=== PATIENT | female | born 1990 | race Caucasian/White ===

== ENCOUNTER 2016-08-27 05:47 | Day surgery (SDC) | payer OTHER ==
[2016-08-27] MEDS ORDERED: LR 1,000 ML IV ONE (06:11)
[2016-08-27] MEDS ORDERED: LIDOCAINE 1% 5 ML SDV ID PRN (06:11)
[2016-08-27] MEDS ORDERED: LIDOCAINE 1% 5 ML SDV ONE (06:14)
[2016-08-27] MEDS ORDERED: ACETAMINOPHEN 500 MG TAB PO ONE (07:00)
[2016-08-27] MEDS ORDERED: ceFAZolin 2 GM/DEXTROSE 100 ML IV ONE (07:00)
[2016-08-27] MEDS ORDERED: PREGABALIN 150 MG CAP PO ONE (07:00)
[2016-08-27] MEDS ORDERED: MIDAZOLAM 2 MG/2 ML VIAL ONE (07:01)
[2016-08-27] MEDS ORDERED: SCOPOLAMINE HYDROBROMIDE 1.5 MG PATCH TD ONE (07:01)
[2016-08-27] MEDS ORDERED: BUPIVACAINE/EPI 0.25% 30 ML SDV ONE (07:16)
[2016-08-27] MEDS ORDERED: PROPOFOL/EMULSION 500 MG/50 ML BOTTLE IV ONE ×2 (07:17→07:33)
[2016-08-27] MEDS ORDERED: fentaNYL 100 MCG/2 ML INJ ONE ×2 (07:17→10:17)
[2016-08-27] MEDS ORDERED: KETOROLAC 30 MG/1 ML SDV ONE (07:17)
[2016-08-27] MEDS ORDERED: ONDANSETRON 4 MG/2 ML VIAL ONE (07:17)
[2016-08-27] MEDS ORDERED: LIDOCAINE 2% 5 ML SDV ONE (07:18)
[2016-08-27] MEDS ORDERED: DEXAMETHASONE 4 MG/ML VIAL ONE (07:24)
[2016-08-27] MEDS ORDERED: fentaNYL 250 MCG/5 ML INJ ONE (07:49)
[2016-08-27] MEDS ORDERED: OXYCODONE/APAP 5/325 TAB ONE (10:33)
== END 2016-08-27 11:20 | disposition home or self-care (01) ==
LOC: FSGY 05:47
PROVIDERS: ATTEND Orthopaedic Surgery Sports Medicine
PROC: 0QP304Z Removal of Internal Fixation Device from Left Pelvic Bone, Open Approach (ICD-10-PCS; principal; 2016-08-27 07:15)
PROC: 0LQM0ZZ Repair Left Upper Leg Tendon, Open Approach (ICD-10-PCS; principal; 2016-08-27 07:15)
DX: T84.84XA Pain due to internal orthopedic prosthetic devices, implants and grafts, initial encounter (principal)
CPT/HCPCS: C1713; J0690; J1100; J1885; J2250; J2405; J2704; J3010

== ENCOUNTER 2018-01-31 17:07 | Emergency (ER) | payer OTHER ==
[2018-01-31] MEDS ORDERED: ONDANSETRON 4 MG/2 ML VIAL IVP ONE (17:58)
[2018-01-31] MEDS ORDERED: ONDANSETRON 4 MG/2 ML VIAL ONE (18:00)
[2018-01-31] MEDS ORDERED: NS 1,000 ML IV ONE (18:11)
[2018-01-31] MEDS ORDERED: HYDROmorphONE/DILAUDID 2 MG/ML INJ IVP ONE (18:11)
--- NOTE | 2018-01-31 18:16 | EDPHY ---
H & P Time Seen by Provider: 01/31/18 17:43 HPI/ROS: HPI Abdominal pain. 27-year-old female by private vehicle with her mother. This patient reports worsening right lower quadrant abdominal pain since Tuesday. She has had associated nausea but no vomiting. Last bowel movement was this morning. Describes this as normal. No bloody or melenic stool. No diarrhea. No prior abdominal surgical history. Last meal was at approximately 12 noon. She does have a history of ovarian cyst. Last menstrual period unknown. She has an IUD ROS: Constitutional: No fever, no chills. No weakness. Eyes: No discharge. No changes in vision. ENT: No sore throat. No nasal congestion or rhinorrhea. Respiratory: No cough. No shortness of breath. Cardiac: No chest pain, no palpitations. Gastrointestinal: As above, no vomiting, no diarrhea. Genitourinary: No hematuria. No dysuria or increased frequency with urination. Musculoskeletal: No back pain. No neck pain. No myalgias or arthralgias. Skin: No rashes. Neurological: No headache. No focal weakness or altered sensation. Past medical history: Bilateral hip dysplasia. Ovarian cysts. Social history: Nonsmoker. Here with mother. No alcohol. Physical Exam: General Appearance: Alert, no distress. This patient is responding to questions appropriately and in full sentences. This patient appears well- hydrated and well-nourished. Eyes: Pupils equal and round no pallor or injection. No lid edema, erythema or injection. Respiratory: There are no retractions, lungs are clear to auscultation with good air movement bilaterally. Cardiovascular: Regular rate and rhythm. No murmur. Gastrointestinal: Abdomen is soft with vague right lower quadrant tenderness on palpation, no masses, bowel sounds normal. No focal tenderness at McBurney' s point. No Rivera sign. Neurological: Motor sensory function is grossly intact. Cranial nerves are normal. Gait is normal. Skin: Warm and dry, no rashes. Musculoskeletal: Neck is supple and nontender. Extremities are symmetrical. All joints range without pain or impingement. Psychiatric: No agitation. No depression. Database: EKG: Imaging: CT abdomen and pelvis with IV contrast: Right ovarian cyst. There is a small amount of free fluid in the pelvis. The IUD is in proper position. CT study not consistent with appendicitis. Results were discussed with staff radiologist Dr. David Gardner. Procedures: Emergency department course: Triage vital signs reviewed and are normal. IV placed. She will be started on IV normal saline with 1 L to be given over the next hour. She will receive 4 mg of IV Zofran for nausea and 0.25 mg of IV hydromorphone for pain initially. 7:30 p.m., the patient was re-evaluated. She is resting comfortably at this time. Her vital signs have remained normal. She has been afebrile. Repeat abdominal exam she is soft, nontender nondistended. Results of CT scan and emergency department workup discussed with her and her mother. She feels comfortable going home at this time. I will put her on high-dose ibuprofen for the next 3 days. Follow-up and return to emergency department precautions have been thoroughly reviewed with her and her mother. All of their questions were answered. The patient was discharged home in good condition. Differential Diagnosis: The differential diagnosis on this patient includes but is not limited to appendicitis, ovarian cyst, urinary tract infection. Ectopic unlikely. This represents a partial list of diagnoses considered. These considerations are based on history, physical exam, past history, reassessment and diagnostic testing. Smoking Status: Never smoked Constitutional: Initial Vital Signs Temperature (C) 37.2 C 01/31/18 17:31 Heart Rate 82 01/31/18 17:31 Respiratory Rate 16 01/31/18 17:31 Blood Pressure 134/89 H 01/31/18 17:31 O2 Sat (%) 96 01/31/18 17:31 O2 Delivery Mode Room Air Allergies/Adverse Reactions: Penicillins Allergy (Verified 01/31/18 17:30) Home Medications: Medication Instructions Recorded Citalopram 08/09/16 Cephalexin 01/31/18 Xanax 01/31/18 Medical Decision Making - Diagnostics Imaging Results: Imaging Impressions Abdomen CT 01/31/18 18:11 Impression: 1. No definite findings to support a clinical diagnosis of acute appendicitis.. 2. Sequela of remote pelvic trauma noted. 3. Right ovarian cysts are identified. Results called and discussed with Dr. Hilary Smith on January 31, 2018 at 1913 hours. - Data Points Laboratory Results: Laboratory Results 01/31/18 17:49 01/31/18 17:49 01/31/18 01/31/18 01/31/18 18:25 18:08 17:55 WBC RBC Hgb POC Hgb 15.0 gm/dL gm/dL 15.3 gm/dL gm/dL (12.6-16.3) (12.6-16.3) Hct POC Hct 44 % % 45 % % (38-47) (38-47) MCV MCH MCHC RDW Plt Count MPV Neut % (Auto) Lymph % (Auto) Dent % (Auto) Eos % (Auto) Baso % (Auto) Nucleat RBC Rel Count Absolute Neuts (auto) Absolute Lymphs (auto) Absolute Monos (auto) Absolute Eos (auto) Absolute Basos (auto) Absolute Nucleated RBC Immature Gran % Immature Gran # POC Sodium 137 mEq/L mEq/L 142 mEq/L mEq/L (135-145) (135-145) Sodium POC Potassium 4.0 mEq/L mEq/L 3.4 mEq/L mEq/L (3.3-5.0) (3.3-5.0) Potassium POC Chloride 99 mEq/L mEq/L 110 mEq/L mEq/L (97-110) (97-110) Chloride Carbon Dioxide Anion Gap POC BUN 35 mg/dL H mg/dL 7 mg/dL mg/dL (7-23) (7-23) BUN Creatinine POC Creatinine 2.1 mg/dL H D mg/dL 0.7 mg/dL mg/dL (0.6-1.0) (0.6-1.0) Estimated GFR Glucose POC Glucose 110 mg/dL H mg/dL 95 mg/dL mg/dL (70-100) (70-100) Calcium Urine Color Urine Appearance Urine pH Ur Specific [place] Urine Protein Urine Ketones Urine Blood Urine Nitrate Urine Bilirubin Urine Urobilinogen Ur Leukocyte Esterase Urine Glucose Urine Test NEGATIVE 01/31/18 01/31/18 01/31/18 17:49 17:49 17:40 WBC 8.21 10^3/uL 10^3/uL (3.80-9.50) RBC 4.82 10^6/uL 10^6/uL (4.18-5.33) Hgb 15.3 g/dL g/dL (12.6-16.3) POC Hgb Hct 42.2 % % (38.0-47.0) POC Hct MCV 87.6 fL fL (81.5-99.8) MCH 31.7 pg pg (27.9-34.1) MCHC 36.3 g/dL g/dL (32.4-36.7) RDW 12.3 % % (11.5-15.2) Plt Count 275 10^3/uL 10^3/uL (150-400) MPV 11.0 fL fL (8.7-11.7) Neut % (Auto) 64.2 % % (39.3-74.2) Lymph % (Auto) 26.8 % % (15.0-45.0) Dent % (Auto) 8.0 % % (4.5-13.0) Eos % (Auto) 0.1 % L % (0.6-7.6) Baso % (Auto) 0.7 % % (0.3-1.7) Nucleat RBC Rel Count 0.0 % % (0.0-0.2) Absolute Neuts (auto) 5.26 10^3/uL 10^3/uL (1.70-6.50) Absolute Lymphs (auto) 2.20 10^3/uL 10^3/uL (1.00-3.00) Absolute Monos (auto) 0.66 10^3/uL 10^3/uL (0.30-0.80) Absolute Eos (auto) 0.01 10^3/uL L 10^3/uL (0.03-0.40) Absolute Basos (auto) 0.06 10^3/uL 10^3/uL (0.02-0.10) Absolute Nucleated RBC 0.00 10^3/uL 10^3/uL (0-0.01) Immature Gran % 0.2 % % (0.0-1.1) Immature Gran # 0.02 10^3/uL 10^3/uL (0.00-0.10) POC Sodium Sodium 139 mEq/L mEq/L (135-145) POC Potassium Potassium 3.7 mEq/L mEq/L (3.3-5.0) POC Chloride Chloride 110 mEq/L mEq/L (97-110) Carbon Dioxide 17 mEq/l L mEq/l (22-31) Anion Gap 12 mEq/L mEq/L (8-16) POC BUN BUN 8 mg/dL mg/dL (7-23) Creatinine 0.7 mg/dL mg/dL (0.6-1.0) POC Creatinine Estimated GFR > 60 Glucose 93 mg/dL mg/dL (70-100) POC Glucose Calcium 10.0 mg/dL mg/dL (8.5-10.4) Urine Color YELLOW Urine Appearance CLEAR Urine pH 5.0 (5.0-7.5) Ur Specific [place] 1.017 (1.002-1.030) Urine Protein NEGATIVE (NEGATIVE) Urine Ketones 1+ H (NEGATIVE) Urine Blood NEGATIVE (NEGATIVE) Urine Nitrate NEGATIVE (NEGATIVE) Urine Bilirubin NEGATIVE (NEGATIVE) Urine Urobilinogen NEGATIVE EU EU (0.2-1.0) Ur Leukocyte Esterase NEGATIVE (NEGATIVE) Urine Glucose NEGATIVE (NEGATIVE) Urine Test Medications Given: Discontinued Medications Hydromorphone HCl (Dilaudid) 0.25 mg IVP EDNOW ONE Stop: 01/31/18 18:12 Last Admin: 01/31/18 18:20 Dose: 0.25 mg Sodium Chloride (Ns) 1,000 mls @ 0 mls/hr IV EDNOW ONE; Wide Open PRN Reason: Protocol Stop: 01/31/18 18:12 Last Admin: 01/31/18 18:19 Dose: 1,000 mls Ondansetron HCl (Zofran) 4 mg IVP EDNOW ONE Stop: 01/31/18 17:59 Last Admin: 01/31/18 18:02 Dose: 4 mg Point of Care Test Results: Chemistry 01/31/18 01/31/18 18:25 17:55 POC Sodium 137 mEq/L mEq/L 142 mEq/L mEq/L (135-145) (135-145) POC Potassium 4.0 mEq/L mEq/L 3.4 mEq/L mEq/L (3.3-5.0) (3.3-5.0) POC Chloride 99 mEq/L mEq/L 110 mEq/L mEq/L (97-110) (97-110) POC BUN 35 mg/dL H mg/dL 7 mg/dL mg/dL (7-23) (7-23) POC Creatinine 2.1 mg/dL H D mg/dL 0.7 mg/dL mg/dL (0.6-1.0) (0.6-1.0) POC Glucose 110 mg/dL H mg/dL 95 mg/dL mg/dL (70-100) (70-100) ISTAT H&H 01/31/18 01/31/18 18:25 17:55 POC Hgb 15.0 gm/dL gm/dL 15.3 gm/dL gm/dL (12.6-16.3) (12.6-16.3) POC Hct 44 % % 45 % % (38-47) (38-47) Departure - Departure Disposition: Home, Routine, Self-Care Clinical Impression: Lower abdominal pain, Ovarian cyst Condition: Good Instructions: Ovarian Cyst (ED), Acute Abdominal Pain (ED) Additional Instructions: Read and follow provided instructions. Follow-up with your primary care physician in 1-2 days for re-evaluation. Ibuprofen dosin mg every 6 hours with meals for the next 3 days only. Take only as needed for pain. Return to the emergency department for worsening pain, fever, vomiting or other serious concerns. Referrals: NONE *PRIMARY CARE P,. [Primary Care Provider] - As per Instructions
[2018-01-31 18:23] LABS: PLATELET COUNT 275 10^3/uL (150-400)
[2018-01-31] MEDS ORDERED: IOPAMIDOL (ISOVUE-300) 100 ML BTL ONE (18:31)
[2018-01-31 20:01] VITALS: BP 118/74
== END 2018-01-31 20:01 | disposition home or self-care (01) ==
DX: N83.201 Unspecified ovarian cyst, right side (principal); E86.9 Volume depletion, unspecified; Z97.5 Presence of (intrauterine) contraceptive device
CPT/HCPCS: 82435-PO; 82565-PO; 82947-PO; 84132-PO; 84295-PO; 84520-PO; 85014-PO; 96374; J1170; J2405; Q9967

== ENCOUNTER → 2018-02-08 | Outpatient (CLI) | payer OTHER | LOC: FIMAGING 09:08 | PROVIDERS: ATTEND Obstetrics & Gynecology | DX: R10.31 Right lower quadrant pain (principal); Z97.5 Presence of (intrauterine) contraceptive device ==

== ENCOUNTER → 2018-06-06 | Outpatient (CLI) | payer OTHER | LOC: BMCIMAGING 10:02 | PROVIDERS: ATTEND Family Medicine | DX: N63.21 Unspecified lump in the left breast, upper outer quadrant (principal) ==